=== PATIENT | female | born 1945 | race Caucasian/White ===

== ENCOUNTER 2019-11-19 23:10 | Inpatient (IN) | payer MEDICARE, BC ==
[~2019-11-19 23:10] MED LIST: Iopamidol 370 76% 100 ML VIAL ONE
--- NOTE | 2019-11-19 23:22 | CT ---
CT BRAIN WITHOUT CONTRAST: HISTORY: Level 1 stroke. Left-sided facial droop, slurred speech, left upper and lower extremity weak ness FINDINGS: A dense right MCA sign is seen suspicious for an acute infarct. No evidence of acute hemorrhage, midl ine shift or abnormal extra-axial fluid collections is seen. The ventricular size is appropriate and the basilar cisterns are patent. The bony calvarium is intact. The visualized paranasal sinuses a nd mastoid air cells are well aerated. IMPRESSION: Findings are highly suspicious for an acute right MCA infarction. Discussed over the telephone with ER physician Dr. Cuate Vital at 11:18 PM
[2019-11-19 23:41] LABS: #Eosinphils 0.1 thou/uL (0.0-0.7); #Lymphocytes 2.3 thou/uL (1.20-3.40); #Monocytes 0.6 thou/uL (0.11-0.59); #Neutrophils 4.4 thou/uL (1.40-6.50); %Basophils 0.2 % (0.0-1.0); %Eosinophils 1.4 % (0.0-10.0); %Lymphocytes 31.4 % (21.0-51.0); %Monocytes 7.5 % (0.0-10.0); %Neutrophils 59.5 % (42.0-75.0); Hemoglobin 11.9 g/dL (12.0-16.0); Mean Corpuscular HGB CONC 33.6 g/dL (32.0-36.0); Mean Corpuscular Hemoglobin 32.3 pg (27.0-31.0); Mean Corpuscular Volume 96.3 fL (78.0-98.0); Mean Platelet Volume 8.8 fL (7.4-10.4); Platelet Count 160 thou/uL (130-400); RBC Distribution Width 11.7 % (11.5-14.5); Red Blood Cell (RBC) Count 3.67 mill/uL (4.20-5.40); White Blood Cell (WBC) Count 7.4 thou/uL (4.8-10.8)
[2019-11-19 23:47] LABS: PTT 24.9 SEC (22.9-36.1); Prothrombin Time 12.8 SEC (12.0-14.7)
--- NOTE | 2019-11-19 23:53 | RAD ---
XR Chest 1 View Portable HISTORY: Altered mental status, level 1 stroke COMPARISON: None FINDINGS: The heart size is enlarged. The aorta is tortuous. There is pulmonary vascular congestion. No pneumothoraces or large effusions are identified.
[2019-11-20 00:03] LABS: ALT (SGPT) 18 U/L (8-55); AST (SGOT) 17 U/L (5-34); Albumin 3.9 g/dL (3.4-4.8); Alkaline Phosphatase 105 U/L (40-110); Anion Gap 15 mmol/L (10-20); BUN (Urea Nitrogen) 22 mg/dL (9.8-20.1); Bilirubin, Total 0.5 mg/dL (0.2-1.2); CK (CPK) 42 U/L (29-168); Calc. Creatinine Clearance 0 mL/min (70-130); Calcium 9.3 mg/dL (7.8-10.44); Carbon Dioxide 23 mmol/L (23-31); Chloride 104 mmol/L (98-107); Estimated GFR-MDRD 63; Globulin 2.6 g/dL (2.4-3.5); Glucose 109 mg/dL (83-110); Lipase 13 U/L (8-78); Potassium 3.7 mmol/L (3.5-5.1); Protein, Total 6.5 g/dL (6.0-8.3); Sodium 138 mmol/L (136-145)
[2019-11-20] MEDS ORDERED: Sodium Chloride 0.9% 1,000 ML IV SCH (02:18)
[2019-11-20] MEDS ORDERED: Ondansetron ODT 4 MG TAB SL PRN (02:18)
[2019-11-20] MEDS ORDERED: Ondansetron PF 4 MG/2 ML Vial IVP PRN (02:18)
[2019-11-20] MEDS ORDERED: niCARdipine 25 MG in Sodium Chloride 0.9% 250 ML 240 ML IVPB PRN (02:27)
[2019-11-20] MEDS ORDERED: Docusate 100 MG CAP PO PRN (02:27)
[2019-11-20] MEDS ORDERED: Acetaminophen 650 MG Suppository PR PRN (02:27)
--- NOTE | 2019-11-20 02:45 | PDOC.HHP ---
Hospitalist HPI - History of Present Illness Unilateral weakness History of Present Illness: Patient is a 74 year old female with PMH HTN, hypothyroidism brought to ED by helocopter with after acute onset L sidede weakness and R sided facial droop as well as altered mental status, patient symptoms developed around 10pm over short period observed by . In ED, CT and CTA of head and neck performed, revealing extensive clot R dital carotid to R MCA, blood glucose 106 , INR 1, NIHSS 23, patient given tPA protocol with minimal improvement of symptoms and admitted to CCU for further monitoring and care. Time of onset to tpa less than 3 hours, no history of bleeding or IC hemorrhage, no recent surgery, not on ASA or blood thinner. No known history of Afib or heart disease Hospitalist ROS - Review of Systems ROS unobtainable: due to mental status Hospitalist History - Past Medical History Other Medical History: hypothyroidism htn - Past Surgical History Other Surgical History: denies per - Family History Other Family History: denies per - Social History Smoking Status: Never smoker Alcohol: reports: Rare (1-2 glasses wine a day) Drugs: reports: none - Exam General Appearance: ill appearing Eye - other findings: L sided gaze palsy, abnormal pupilarry response R ENT: normocephalic atraumatic, moist mucosa Neck: supple, no JVD Heart: RRR, no murmur, no gallops, no rubs Respiratory: CTAB, no wheezes, no rales, no ronchi Gastrointestinal: soft, non-tender, non-distended, normal bowel sounds Extremities: no cyanosis, no clubbing, no edema Skin: no lesions, no rashes Neurological: facial droop (R), hemiplegia (L sided body, R sided face hemiplegia, reduced or absent sensation L body R face, R body and left face normal, global altered mental status), speech deficit, vision deficit Neurological - other findings: L sided muscle strength 1+ in all arm and leg muscle groups, R facial droop Musculoskeletal: normal tone, no muscle wasting Psychiatric: not oriented Hospitalist Results - Labs Result Diagrams: 11/19/19 23:23 11/19/19 23:23 Lab results: WBC 7.4 thou/uL (4.8-10.8) 11/19/19 23:23 Hgb 11.9 g/dL (12.0-16.0) L 05/01/20 23:23 Hct 35.3 % (36.0-47.0) L 11/19/19 23:23 MCV 96.3 fL (78.0-98.0) 11/19/19 23:23 Plt Count 160 thou/uL (130-400) 11/19/19 23:23 Neutrophils % 59.5 % (42.0-75.0) 11/19/19 23:23 Sodium 138 mmol/L (136-145) 11/19/19 23:23 Potassium 3.7 mmol/L (3.5-5.1) 11/19/19 23:23 Chloride 104 mmol/L (98-107) 11/19/19 23:23 Carbon Dioxide 23 mmol/L (23-31) 11/19/19 23:23 BUN 22 mg/dL (9.8-20.1) H 11/19/19 23:23 Creatinine 0.88 mg/dL (0.6-1.1) 11/19/19 23:23 Glucose 109 mg/dL (83-110) 11/19/19 23:23 Calcium 9.3 mg/dL (7.8-10.44) 11/19/19 23:23 Total Bilirubin 0.5 mg/dL (0.2-1.2) 11/19/19 23:23 AST 17 U/L (5-34) 11/19/19 23:23 ALT 18 U/L (8-55) 11/19/19 23:23 Alkaline Phosphatase 105 U/L (40-110) 11/19/19 23:23 Creatine Kinase 42 U/L (29-168) 11/19/19 23:23 Troponin I 0.010 ng/mL (< 0.028) 11/19/19 23:23 B-Natriuretic Peptide 263.4 pg/mL (0-100) H 11/19/19 23:23 Serum Total Protein 6.5 g/dL (6.0-8.3) 11/19/19 23:23 Albumin 3.9 g/dL (3.4-4.8) 11/19/19 23:23 Lipase 13 U/L (8-78) 11/19/19 23:23 Additional comment: VITAL SIGNS Sat November 20, 2019 01:17 Authement, RN, Narayan BP: 188/89 Pulse: 65 Resp: 16 Temp: 98.2 (Oral) Pain: 0 O2 sat: 99 on (Room Air) Time: 11/20/2019 01:17. Hospitalist H&P A/P - Plan Plan: Patient is a 74 year old female with PMH HTN, hypothyroidism brought to ED by helocopter with after acute onset L sidede weakness and R sided facial droop as well as altered mental status. # acute ischemic stroke - CT head and CTA concerning for extensive clot of distal R carotid extending to R MCA causing acute stroke with L sided hemiplegia and R facial droop, patient given tPA within 3 hours of onset of symptoms for NIHSS 23 and no change in symptoms after infusion, admitted to CCU for further monitoring and care. 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
[2019-11-20 03:04] VITALS: BMI 34.9
[2019-11-20] MEDS: Sodium Chloride 0.9% 1,000 ML IV SCH ×2 (03:40→16:29)
[2019-11-20] MEDS: Communication Order-Pharmacy FS SCH ×2 (03:41→23:44)
[2019-11-20 04:40] LABS: PTT 29.9 SEC (22.9-36.1)
[2019-11-20 04:41] LABS: Prothrombin Time 13.5 SEC (12.0-14.7)
[2019-11-20 04:53] LABS: ALT (SGPT) 18 U/L (8-55); AST (SGOT) 17 U/L (5-34); Albumin 4.1 g/dL (3.4-4.8); Alkaline Phosphatase 123 U/L (40-110); Anion Gap 16 mmol/L (10-20); BUN (Urea Nitrogen) 22 mg/dL (9.8-20.1); Bilirubin, Total 0.6 mg/dL (0.2-1.2); Calc. Creatinine Clearance 80 mL/min (70-130); Calcium 9.3 mg/dL (7.8-10.44); Carbon Dioxide 23 mmol/L (23-31); Cardiac Risk 2.6 (Less than 4.5); Chloride 102 mmol/L (98-107); Cholesterol 135 mg/dl (< 200 Desired); Estimated GFR-MDRD 64; Globulin 2.9 g/dL (2.4-3.5); Glucose 164 mg/dL (83-110); HDL Cholesterol 52 mg/dL (>60 Neg Risk); LDL Cholesterol, Calculated 68 mg/dL; Potassium 4.2 mmol/L (3.5-5.1); Sodium 137 mmol/L (136-145); Triglycerides 74 mg/dL (Less than 150)
[2019-11-20] MEDS: Piperacillin/Tazobactam 3.375 GM in Sodium Chloride 0.9% 100 ML IVPB SCH ×4 (05:57→23:34)
--- NOTE | 2019-11-20 06:46 | CT ---
CTA HEAD AND NECK WITH IV CONTRAST AND 3D POST PROCESSING: HISTORY: Left facial droop. Slurred speech. Left upper and lower extremity weakness. Level I stroke. CORRELATION: CT brain from the same day. FINDINGS: There is occlusion of the distal cervical right ICA, extending intracranially and involving the carot id canal and cavernous portions and the supraclinoid portions, into a 1 cm M1 segment of the right MC A. There is decreased flow to the brain tissue in the right MCA territory. There is normal flow in the left carotid artery system and in the entire vertebrobasilar system. Ther e is calcified plaque in the carotid bulbs without significant stenosis. Discussed over the telephone with ER physician Dr. Cuate Vital at 11:50 p.m. CODE CR POS: ABIGAIL
--- NOTE | 2019-11-20 07:42 | RAD ---
RADIOGRAPH CHEST 1 VIEW: DATE: 11/20/2019 TIME: 5:47 AM HISTORY: 74-year-old female with hypoxia and aspiration. COMPARISON: 11/19/2019 FINDINGS: Interval development of diffuse mixed interstitial and alveolar infiltrates throughout the right lung . Interval development of diffuse interstitial infiltrates throughout the left mid and lower lung zones. Cardiac size at upper limits of normal. No pneumothorax. IMPRESSION: Interval development of diffuse bilateral pulmonary densities, right worse than left. Differential di agnosis includes pulmonary edema versus pneumonia.
--- NOTE | 2019-11-20 08:08 | CT ---
PRELIMINARY REPORT/[facility]/AFTER HOURS PROCEDURE CT HEAD WITHOUT INTRAVENOUS CONTRAST: CLINICAL HISTORY: F/u CVA; s/p t-PA. TECHNIQUE: Axial computed tomography images of the head/brain without intravenous contrast. COMPARISON: 11/19/19 FINDINGS: Interim evolution of right MCA territory infarct with loss of mitchell white differentiation. No acute intraparenchymal hemorrhage. No mass lesion. No midline shift or extra-axial collection. No hydrocephalus. The orbits are unremarkable. The paranasal sinuses and mastoid air cells are clear. No significant facial or scalp soft tissue swelling evident. No radiopaque foreign body is seen. No acute skull fracture. IMPRESSION: Interim evolution of right MCA territory infarct with loss of mitchell white differentiation. No acute in traparenchymal hemorrhage. ELECTRONICALLY SIGNED BY: Vamsi Edwards MD November 20, 2019 4:09:59 AM CDT This report is intended for review by the ordering physician only, in accordance of law. If you recei ve this report in error, please call [facility] at [phone]. FINAL REPORT CT BRAIN NONCONTRAST: 11/20/2019 4:00 a.m. HISTORY: A 74-year-old female with acute stroke. COMPARISON: 11/19/2019 FINDINGS: There is a new finding of cytotoxic edema with loss of hernandez-white junction involving the entire right frontal lobe, almost the entire right temporal lobe, entire right lentiform nucleus-basal ganglia and caudate, and most of the right parietal lobe. There is no acute intra-axial or extra-axial hemorr juan. Ventricles are normal in size and configuration. No mass effect, midline shift or extra-axial fluid collection. Agree with preliminary report by [facility]. IMPRESSION: Evolution of a very large acute infarction in the right middle cerebral artery territory, involving m ost of the right cerebral hemisphere and entire right corpus striatum. CODE QA Transcribed Date/Time: 11/20/2019 8:57 AM
[2019-11-20] MEDS: hydrALAZINE 20 MG/ML VIAL SLOW IVP PRN (08:51)
[2019-11-20] MEDS: methylPREDNISolone Sod Succ 40 MG VIAL IVP SCH ×3 (10:28→23:34)
[2019-11-20] MEDS: Insulin Regular 300 UNITS/3 ML VIAL SC PRN ×3 (10:29→20:12)
--- NOTE | 2019-11-20 12:47 | CON ---
DATE OF CONSULTATION: 11/28/2019 HISTORY OF PRESENT ILLNESS: Ms. White is a 74-year-old female, who apparently developed left-sided weakness and facial droop. She was given tPA. She had some nausea and vomiting apparently sometime along the way and is in the critical care unit after tPA with reported possible aspiration. She has no complaints at this time. She has a very weak voice. If she is not talking, she is not tachypneic. PAST MEDICAL HISTORY: Remarkable for: 1. Hypertension. 2. History of hypothyroidism. SOCIAL HISTORY: Nonsmoker. Occasional drinker. FAMILY HISTORY: Negative for lung disease in early age. REVIEW OF SYSTEMS: Otherwise, negative. PHYSICAL EXAMINATION: GENERAL: She is in no distress. VITAL SIGNS: Blood pressure 153/75, heart rate is 80, respiratory rates in the 20s, oximetry is 92% to 93%. HEAD AND NECK: Unremarkable. LUNGS: Clear. HEART: Regular rhythm. S1 and S2 are normal. ABDOMEN: Soft and nontender. EXTREMITIES: Without edema. LABORATORY DATA: White count 7.4, hemoglobin 11.9, platelets 160. Electrolytes are normal. Creatinine is 0.8. Coags are normal. Head CT done this morning shows right middle cerebral infarct. Chest x-ray shows an alveolar infiltrate involving almost the entire right lung. IMPRESSION AND PLAN: Aspiration with probable chemical pneumonitis. She will receive nebulized treatments, steroids, and antimicrobial therapy. Overall, she is stable from a respiratory standpoint after cerebrovascular accident. This is a 70 min consult with greater than 50% of the time spent on the unit with coordination of care. Job ID: [id number] MTDD
--- NOTE | 2019-11-20 16:14 | CON ---
DATE OF CONSULTATION: 11/20/2019 CONSULTING PHYSICIAN: Hospitalist Service. IMPRESSION: 1. 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 2. Aspirin failure. PLAN: 1. Start Plavix 75 mg per day after the 24-hour window is . 2. Probable need for transfer to rehab. HISTORY OF PRESENT ILLNESS: Ms. White is a 74-year-old woman with past history of hypertension. She reports that she developed left-sided weakness and numbness. She came in to the emergency room last night. CT angiogram showed a distal right ICA occlusion, which extended up into the cavernous portion. Initial CT did not show any evidence of a bleed. She was given tPA. She had a followup CT scan of the brain done this morning, which showed an evolving right MCA stroke. She denies a history of TIA. She was on aspirin prior to admission. She denies being on a statin. There is no history of tobacco use. PAST MEDICAL HISTORY: Hypertension. ALLERGIES: PER CHART. SOCIAL HISTORY: No tobacco or alcohol use. FAMILY HISTORY: Noncontributory. REVIEW OF SYSTEMS: Ten-system review of systems is otherwise negative. PHYSICAL EXAMINATION: VITAL SIGNS: Blood pressure 150/77, pulse 86 and a sinus rhythm, and respirations 20. She is afebrile. HEENT: Pupils are equal. Conjunctivae are clear. Oropharynx clear. Cranium, normocephalic and atraumatic. NECK: Supple. EXTREMITIES: No cyanosis, clubbing or edema. NEUROLOGIC: She was alert and cooperative. Her speech was fluent and clear. She had a subtle left facial droop. There was a dense paralysis of the left side. She had sensory neglect of the left side. Plantar response was upgoing on the left and downgoing on the right. Gait was not testable. LABORATORY STUDIES: Unremarkable. IMAGING STUDIES: Reviewed. SUMMARY: This is an unfortunate woman, who had a thrombosis of her internal carotid artery, reportedly preliminarily her echocardiogram does not show a cardiac source. She has fairly dense deficits at this point. I agree with current management. I would add Plavix following the 24-hour window. Job ID: [id number]
[2019-11-20] MEDS: Ondansetron PF 4 MG/2 ML Vial IVP PRN ×2 (16:26→22:02)
[2019-11-20] MEDS: Atorvastatin Calcium 40 MG TAB PO SCH (20:05)
[2019-11-21] MEDS: Piperacillin/Tazobactam 3.375 GM in Sodium Chloride 0.9% 100 ML IVPB SCH ×4 (05:12→23:38)
[2019-11-21] MEDS: Sodium Chloride 0.9% 1,000 ML IV SCH ×2 (05:12→20:36)
[2019-11-21] MEDS: methylPREDNISolone Sod Succ 40 MG VIAL IVP SCH ×4 (05:14→23:39)
[2019-11-21] MEDS: Insulin Regular 300 UNITS/3 ML VIAL SC PRN ×4 (05:15→21:27)
[2019-11-21] MEDS: Ondansetron PF 4 MG/2 ML Vial IVP PRN (06:27)
[2019-11-21] MEDS ORDERED: manNITOL 20% 0 ML ONE (08:41)
--- NOTE | 2019-11-21 08:44 | CT ---
CT BRAIN NONCONTRAST: DATE: 11/21/2019 8:30 AM HISTORY: 74-year-old female with altered mental status: new unresponsiveness. Dr. Mcdonnell notified CCU nurse Baylee Hutson RN at 8:37 AM 11/21/2019. She stated that she will immediately alert the staff. COMPARISON: 11/20/2019 FINDINGS: The large region of cytotoxic edema involving the entire right MCA and MIRNA territory, has resulted in expansion of the right cerebral hemisphere, such that there is a new finding of 20 mm of right to left midline shift of the septum pellucidum, almost completely effacing the right lateral ventricle, severely narrowing the third ventricle, and distorting the left lateral ventricle, where there is new dilation of the left temporal horn. Fourth ventricle remains normal. The midbrain is distorted, w ith effacement of the ambient cistern. No cerebellar tonsillar herniation. No acute hemorrhage. IMPRESSION: Interval severe worsening of the cytotoxic edema of the very large acute infarctions of the entire ri ght middle cerebral artery territory and entire right anterior cerebral artery territory,. With interval development of severe mass effect, causing severe subfalcine herniation and uncal herniation
[2019-11-21] MEDS ORDERED: MANNITOL 20% IVPB SCH ×2 (09:00)
[2019-11-21] MEDS ORDERED: ADMIXTURE FEE CHEMO IVPB SCH (09:00)
--- NOTE | 2019-11-21 10:21 | CON ---
DATE OF CONSULTATION: 11/21/2019 CONSULTING PHYSICIAN: Hospitalist Service. HISTORY OF PRESENT ILLNESS: Ms. White has become less verbally responsive overnight. She was taking on the CT scan and repeat imaging showed fairly massive area of ischemic injury involving the right middle and anterior cerebral artery territory. There is midline shift. There remained some room around the brain stem. There is no secondary hemorrhage. Neurosurgery was consulted and the situation was discussed with her . I have elected to only treat her medically rather than any surgical intervention. She has been started on mannitol. She is currently on steroids. Her head of bed is elevated at 30 degrees. Her fluid is restricted 75 mL an hour. We will follow her course, it seems to be little else we can do at this point. Job ID: [id number]
[2019-11-21 10:27] LABS: Sodium 137 mmol/L (136-145)
[2019-11-21 10:33] LABS: Hemoglobin 12.9 g/dL (12.0-16.0); Mean Corpuscular HGB CONC 33.7 g/dL (32.0-36.0); Mean Corpuscular Hemoglobin 31.9 pg (27.0-31.0); Mean Corpuscular Volume 94.6 fL (78.0-98.0); Mean Platelet Volume 8.3 fL (7.4-10.4); Platelet Count 220 thou/uL (130-400); RBC Distribution Width 11.8 % (11.5-14.5); Red Blood Cell (RBC) Count 4.06 mill/uL (4.20-5.40)
[2019-11-21 10:43] LABS: ALT (SGPT) 17 U/L (8-55); AST (SGOT) 19 U/L (5-34); Albumin 3.9 g/dL (3.4-4.8); Alkaline Phosphatase 101 U/L (40-110); Anion Gap 15 mmol/L (10-20); BUN (Urea Nitrogen) 15 mg/dL (9.8-20.1); Bilirubin, Total 0.7 mg/dL (0.2-1.2); Calc. Creatinine Clearance 90 mL/min (70-130); Calcium 8.2 mg/dL (7.8-10.44); Carbon Dioxide 20 mmol/L (23-31); Chloride 104 mmol/L (98-107); Estimated GFR-MDRD 75; Globulin 2.7 g/dL (2.4-3.5); Glucose 215 mg/dL (83-110); Protein, Total 6.6 g/dL (6.0-8.3)
[2019-11-21 10:47] LABS: Potassium 2.7 mmol/L (3.5-5.1)
--- NOTE | 2019-11-21 10:57 | CON ---
DATE OF CONSULTATION: 11/21/2019 TIME SEEN: 0845 hours. SUBJECTIVE: Ms. White is a 74-year-old woman, who was admitted yesterday early for stroke-like symptoms. She was found to have a large right internal carotid total occlusion and tPA was administered in the emergency department. It was already early evidence on CT scan of infarction throughout the majority of the right hemisphere. Neurosurgery is consulted this morning for further decline in her neurologic status with the repeat CT performed this morning showing vast evolution of cytotoxic edema and new presence of severe midline shift right to left measuring roughly 20 mm. There is full effacement in the right lateral ventricle and subfalcine herniation is most certainly present. Neurology and Dr. Barrow has already been on this patient's case and ordered mannitol to start, which is at 60 gram dose initially and then 60 gram every 8 hours from there. At bedside, the patient has eyes closed and does not open them for us even when requested to do so. She does rapidly follow commands in the right upper extremity and right lower extremity. She squeezes the hand, holds up 2 fingers, holds up 4 fingers and wiggles her toes. At this time, she is nonverbal. She has dense hemiparesis at the left upper and left lower extremity. Pupils, right is roughly 3 to 4 mm in size, left is 2 mm in size, both are sluggishly reactive to light. As we are examining her, she has 1 episode of emesis and bed is shifted from around 30 degrees closer to 80 degrees in the upright position. The patient does not have any declaration of a DNR nor DNI status and this has been a rapidly evolving situation. I do not feel that surgical intervention will likely change her prognosis in this setting unfortunately, given the grave prognosis of her large hemispheric stroke as well as her advanced age of 74. I discussed case with Dr. Sarkar, Dr. Barrow, Dr. Tristan, as well as Dr. Centeno. Our intervention at this time will be medical only, pending further discussion with family. We will switch her initial dose to 90 grams of mannitol and then continue from there at 60 grams every 8 hours with serum osmolality and serum sodium checks 1 hour prior to ensure that it is safe to give the next dose. Serum chemistry, upper limits will be set at sodium of 150 and serum osmolality of 320, will need to be called and updated if we have lab values over those for direction on the next dose. Dr. Sarkar also did reach out to as were reviewing the patient's case this morning, who states the patient does not wish to be on mechanical ventilation and does not want the patient intubated, so at this time, we will proceed with [facility]. Family to come and see the patient at bedside sometime later this morning. Again, discussion with Dr. Centeno is nonsurgical management. No additional intervention at this time. Job ID: [id number]
[2019-11-21 10:58] LABS: Lymphocytes 5 % (21-51); MDiff Complete? YES; Monocytes 4 % (0-10); Neutrophil 91 % (42-75); Platelet Morphology Comment Appears Adequate
[2019-11-21] MEDS ORDERED: CCU Electrolyte Replacement 1 EACH FS ONE (10:59)
[2019-11-21] MEDS ORDERED: Potassium Chloride 40 MEQ in Premix Bag 1 BAG IVPB PRN (11:01)
[2019-11-21] MEDS ORDERED: Potassium Chloride 20 MEQ TAB PO PRN (11:01)
[2019-11-21] MEDS ORDERED: PHOS-NAK 1 PKT PACK PO PRN ×2 (11:01)
[2019-11-21] MEDS ORDERED: Potassium Phosphate 12 MMOL in Sodium Chloride 0.9% 250 ML 250 ML IV PRN (11:01)
[2019-11-21] MEDS ORDERED: Magnesium Oxide 400 MG TAB PO PRN ×2 (11:01)
[2019-11-21] MEDS ORDERED: Potassium Phosphate 15 MMOL in Sodium Chloride 0.9% 250 ML 250 ML IV PRN (11:01)
[2019-11-21] MEDS ORDERED: Magnesium 2 GM/50 ML 2 GM in Premix Bag 1 BAG IVPB PRN (11:01)
[2019-11-21] MEDS ORDERED: Potassium Phosphate 9 MMOL in Sodium Chloride 0.9% 100 ML IVPB PRN (11:01)
--- NOTE | 2019-11-21 11:17 | PRG ---
DATE OF SERVICE: 11/21/2019 Ms. White is a 74-year-old female, who presented with right-sided CVA. Her right internal carotid artery was occluded, which prevented meaningful treatment by endovascular means. She has since developed as anticipated a large ischemic infarct involving much of the right hemisphere. She has been seen by our service as well as Pulmonary/Critical Care and Neurology. I do not believe any surgical intervention at this point in time would prove fruitful. A hemicraniectomy in someone in her age group and current functional status would be very difficult to recover from with unlikely improvement overall in functional outcome. Maximal medical management is the appropriate steps moving forward. I reviewed the note and agree with the assessment as dictated by Manish Edmonds PA-C. Job ID: [id number]
[2019-11-21] MEDS: Enoxaparin Sodium 40 MG/0.4 ML SYRINGE SC SCH (11:28)
[2019-11-21] MEDS: Aspirin 300 MG Suppository PR SCH (11:28)
[2019-11-21] MEDS: Potassium Chloride 40 MEQ in Sodium Chloride 0.9% 250 ML 250 ML IVPB PRN ×3 (11:43→23:30)
[2019-11-21] MEDS: hydrALAZINE 20 MG/ML VIAL SLOW IVP PRN ×2 (15:59→23:47)
[2019-11-21 17:04] LABS: Sodium 141 mmol/L (136-145)
[2019-11-21 17:06] LABS: Potassium 2.7 mmol/L (3.5-5.1)
[2019-11-21] MEDS: ADMIXTURE FEE IVPB SCH (17:43)
[2019-11-21] MEDS: IN MANNITOL IVPB SCH (17:43)
--- NOTE | 2019-11-21 20:31 | PRG ---
DATE OF SERVICE: 11/21/2019 SUBJECTIVE: Kenna White is clinically declined throughout the day. She has been evaluated multiple times. Hospitalist contacted her , who did not want her mechanically ventilated, did not want her to be evaluated for neurosurgical procedure such as a craniectomy. She has asymmetric pupils this afternoon. Hemodynamics have remained stable, but she is starting to have difficulty protecting her airway. When I evaluated her late this afternoon, it is clear that she would need airway protection if she were to survive any length of time. OBJECTIVE: LUNGS: Otherwise unchanged. HEART: Otherwise unchanged. ABDOMEN: Otherwise unchanged. LABORATORY DATA: White count is 19, hemoglobin 12.9, platelets 220,000. Sodium 137, potassium 2.7, chloride 104, bicarb 20, BUN 15, and creatinine 0.75. DIAGNOSTIC DATA: Head CT showed a dramatic midline shift and impending herniation. IMPRESSION: Massive thrombotic hemispheric cerebrovascular accident with impending herniation. It is unlikely that she will survive 24 hours. She has been made a [id number] patient. Critical care time 30 min Job ID: [id number] MTDD
[2019-11-21] MEDS: Atorvastatin Calcium 40 MG TAB PO SCH (20:37)
[2019-11-21 22:42] LABS: Potassium 3.2 mmol/L (3.5-5.1)
[2019-11-22 00:26] LABS: Sodium 148 mmol/L (136-145)
[2019-11-22] MEDS: Labetalol HCl 100 MG/20 ML VIAL SLOW IVP PRN ×2 (01:21→06:17)
[2019-11-22 01:29] LABS: Sodium 149 mmol/L (136-145)
[2019-11-22] MEDS: IN MANNITOL IVPB SCH (01:33)
[2019-11-22] MEDS: ADMIXTURE FEE IVPB SCH (01:33)
[2019-11-22] MEDS: hydrALAZINE 20 MG/ML VIAL SLOW IVP PRN ×2 (03:36→07:06)
[2019-11-22] MEDS: Insulin Regular 300 UNITS/3 ML VIAL SC PRN ×2 (03:50→08:59)
[2019-11-22 04:41] LABS: Potassium 4.1 mmol/L (3.5-5.1)
[2019-11-22] MEDS: Sodium Chloride 0.9% 1,000 ML IV SCH ×2 (05:02→08:58)
[2019-11-22] MEDS: methylPREDNISolone Sod Succ 40 MG VIAL IVP SCH (05:02)
[2019-11-22] MEDS: Piperacillin/Tazobactam 3.375 GM in Sodium Chloride 0.9% 100 ML IVPB SCH (05:02)
--- NOTE | 2019-11-22 06:58 | PDOC.HOSPP ---
- Subjective Encounter Date: 11/21/19 Encounter Time: 09:00 Subjective: pt had change of mental status per nursing and tachypnea. - Objective Vital Signs & Weight: Vital Signs (12 hours) Temp Pulse Resp BP Pulse Ox 11/22/19 06:17 67 198/115 H 11/22/19 04:00 97.6 F 11/22/19 03:36 69 197/92 H 11/22/19 02:49 67 18 98 11/22/19 01:21 68 192/92 H 11/21/19 23:47 67 182/96 H 11/21/19 23:00 97.6 F 11/21/19 22:35 67 23 H 96 11/21/19 20:00 97.9 F 94 L Weight Weight 193 lb 12.581 oz Most Recent Monitor Data Heart Rate from ECG 73 NIBP 198/115 NIBP BP-Mean 142 Respiration from ECG 20 SpO2 97 I&O: 11/20/19 11/21/19 11/22/19 06:59 06:59 06:59 Intake Total 248 1609 3569 Output Total 650 1430 5135 Balance -402 179 -1566 Result Diagrams: 11/21/19 09:16 11/22/19 03:58 Additional Labs: Accuchecks 11/22/19 11/21/19 11/21/19 03:52 21:29 17:00 POC Glucose 218 H 192 H 224 H 11/21/19 10:22 POC Glucose 224 H Hospitalist ROS - Review of Systems Other: unable to obtain - Medication Medications: Active Medications Generic Name Dose Route Start Last Admin Trade Name Freq PRN Reason Stop Dose Admin Acetaminophen 650 mg 11/20/19 02:27 11/20/19 22:09 Tylenol AL 650 mg Q6H PRN Administration Headache/Fever/Mild Pain (1-3) Albuterol/Ipratropium 3 ml 11/20/19 10:30 11/22/19 02:49 Duoneb NEB 3 ml [id number] NIRAJ Administration Aspirin 300 mg 11/21/19 09:00 11/21/19 11:28 Aspirin AL 300 mg DAILY NIRAJ Administration Atorvastatin Calcium 40 mg 11/20/19 21:00 11/21/19 20:37 Lipitor PO 40 mg HS NIRAJ Administration Enoxaparin Sodium 40 mg 11/21/19 09:00 11/21/19 11:28 Lovenox SC 40 mg 0900 NIRAJ Administration Hydralazine HCl 10 mg 11/20/19 02:27 11/22/19 03:36 Apresoline SLOW IVP 10 mg Q4H PRN Administration SBP > 180 or DBP > 105 Piperacillin Sod/Tazobactam 100 mls @ 200 mls/hr 11/20/19 06:00 11/22/19 05: 02 Sod 3.375 gm/ Sodium Chloride IVPB 100 mls Q6HR NIRAJ Administration Miscellaneous Medication 1 300 mls @ 0 mls/hr 11/21/19 17:00 11/22/19 01:33 each/ Mannitol IVPB Not Given 0100,0900,1700 [facility] As Directed Potassium Chloride 40 meq/ 270 mls @ 135 mls/hr 11/21/19 11:01 11/21/19 23:30 Sodium Chloride IVPB 270 mls ASDIR PRN Administration FOR SERUM K+ 2.5 - 3.5 Sodium Chloride 1,000 mls @ 100 mls/hr 11/21/19 18:30 11/22/19 05:02 Normal Saline 0.9% IV Not Given .Q10H [facility] Insulin Human Regular 0 units 11/20/19 02:27 11/22/19 03:50 Humulin R SC 4 unit .MODERATE SLIDING SC PRN Administration Moderate Correctional Scale Labetalol HCl 10 mg 11/20/19 02:27 11/22/19 06:17 Normodyne SLOW IVP 10 mg Q10MIN PRN Administration SBP > 180 or DBP > 105 Methylprednisolone Sodium Succinate 40 mg 11/20/19 12:00 11/22/19 05:02 Solu-Medrol IVP 40 mg Q6HR NIRAJ Administration Ondansetron HCl 4 mg 11/20/19 15:59 11/21/19 06:27 Zofran IVP 4 mg Q6H PRN Administration Nausea/Vomiting Sodium Chloride 10 ml 11/20/19 09:00 11/21/19 20:46 Flush - Normal Saline IVF 10 ml Q12HR NIRAJ Administration - Exam Heart: negative: RRR, no murmur, no gallops, no rubs, normal peripheral pulses, irregular, diminshed peripheral pulses, murmur present, II/IV, III/IV Respiratory: rhonchi Gastrointestinal: negative: soft, non-tender, non-distended, normal bowel sounds , no palpable masses, no hepatomegaly, no splenomegaly, no bruit, no guarding, no rigidity, tender to palpation, distended, diminished bowl sounds, voluntary guarding Extremities: 1+ LE edema Neurological - other findings: not following commands Hosp A/P (1) Stroke Code(s): I63.9 - CEREBRAL INFARCTION, UNSPECIFIED Status: Acute (2) 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 Ct brain ordered. pt does have change in mental status from yesterday. ct brain indicates worsening swelling and herniation. Neurosurgery called to evaluate pt. Neurology called. pt started on mannitol. per NS no surgical intervention. spoke with Farhad White who states that he will come see his . spoke with pt's daughter Radha and updated her about pt's overall poor outcome. Spoke with pulmonary who stated that she may require intubation since she is unable to manage her secretions however recommended against it because of her worsening ct brain and overall poor outcome. This information was relayed to pt's and daughter.
--- NOTE | 2019-11-22 07:06 | PDOC.FMACP ---
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 The diagnosis, prognosis and goals of care were discussed. Appropriate forms and documentation to accomplish the goals of care were discussed. All questions were answered. The Palliative Care Team will be engaged to assist with completion of any outstanding forms that are needed. spoke in person and on the phone to pt's Farhad White about pt's overall poor outcome given her change in ct brain. Also showed him pt's ct brain. pt's states that she does not want to be on life support and wanted her to be a DNAR. He stated that he will update the family. I also spoke on the phone with Radha (daughter) about pt's overall prognosis. she will try to come see her mother today. She also stated that her mother would not want to be kept alive on machines. She agreed with her step father's decision. Time Spent (mins): 35
[2019-11-22 07:07] VITALS: BP 208/156
[2019-11-22 07:55] VITALS: TEMP 95.7
[2019-11-22 08:13] LABS: Sodium 159 mmol/L (136-145)
[2019-11-22] MEDS: Aspirin 300 MG Suppository PR SCH (08:29)
[2019-11-22] MEDS: Enoxaparin Sodium 40 MG/0.4 ML SYRINGE SC SCH (08:29)
[2019-11-22] MEDS ORDERED: Morphine 4 MG/ML VIAL ONE (09:14)
[2019-11-22] MEDS ORDERED: Morphine 4 MG/ML VIAL SLOW IVP PRN (09:35)
--- NOTE | 2019-11-22 11:14 | PRG ---
DATE OF SERVICE: 11/22/2019 SUBJECTIVE: Kenna White is having apneic spells mixed with an inability to protect her airway, but does temporary responds to suctioning. OBJECTIVE: VITAL SIGNS: She is afebrile. Heart rate is 106 and blood pressure 175/88. Intake and output are -1566. She had 4685 urine out. ASSESSMENT AND PLAN: Clinically, she clearly is not going to survive this. Multiple unnecessary medications, it can be discontinued and we should move forward focusing on comfort at this point unfortunately. Job ID: [id number]
--- NOTE | 2019-11-23 13:54 | DIS ---
DATE OF ADMISSION: 11/20/2019 DATE OF DISCHARGE: 11/22/2019 DISCHARGE DIAGNOSES: 1. Stroke, status post tPA. 2. Acute respiratory distress. 3. Aspiration pneumonia. HOSPITAL COURSE: The patient is a 74-year-old female who initially presented to the hospital with change in mental status at this time and she was given tPA. Initially, she did well. However, over the weekend, she had change in mental status and had tachypnea. At this time, a repeat CT of the brain indicated worsening cytotoxic edema for a very large acute infarcts of the entire right middle cerebral artery territory and entire right anterior cerebral artery territory. At this time, there was a significant mass effect causing severe subfalcine herniation and uncal herniation. At this time, Neurosurgery was consulted. Recommendation was no surgical intervention. The patient was put on mannitol. Also, Neurology was consulted. I spoke with pulmonology who stated that her overall outcome would be poor if she got intubated given her grim prognosis. At this time, the patient's wanted to withdraw care and making her comfort. I also spoke with her daughter in extensive detail, and she has agreed with the plan. The patient on 11/21 at 10:14 a.m. The patient's family was notified, condolences to the family. Job ID: [id number]
--- NOTE | 2019-11-23 19:41 | PQF ---
RAHEL BOGGS IMER RUSH [id number] CLINICAL DOCUMENTATION IMPROVEMENT CLARIFICATION FORM: ICD-10 Updated PLEASE DO AN ADDENDUM TO THE PROGRESS NOTE WITH ANY DOCUMENTATION UPDATES OR ADDITIONS AND CARRY THROUGH TO DC SUMMARY. THANK YOU. DATE: 11/23/2019 ATTN: DR. Godwin RUSH Please exercise your independent, professional judgment in responding to the clarification form. Clinical indicators are provided on the bottom of this form for your review. Please check appropriate box(s): PLEASE SEE MY DC SUMMARY [ ] Acute Respiratory Failure: [ ] with Hypoxia[ ] with Hypercapnia [ ] Acute Respiratory Failure due to: (etiology) [ ] Hypoxia [ ] Other diagnosis [ ] Unable to determine In addition, please specify: Present on Admission (POA): [ ] Yes [ ] No [ ] Unable to determine For continuity of documentation, please document condition throughout progress notes and discharge summary. Thank You. CLINICAL INDICATORS - SIGNS / SYMPTOMS / LABS / RESULTS AND LOCATION IN MR 11/18 ED REPORT: PT 90%RA > 95-98% 2L/NC RESP 11/19 24 11/20 28 11/20 PN (LANA) IT IS CLEAR SHE WOULD NEED AIRWAY PROTECTION IF SHE WERE TO SURVIVE ANY LENGTH OF TIME 11/21 PN (LANA) IS HAVING APNEIC SPELLS MIXED WITH AN INABILITY TO PROTECT HER AIRWAY, BUT DOES RESPOND TO SUCTIONING. RISK: CVA, COMPRESSION OF THE BRAIN, ASPIRATION PNEUMONIA (YOSSI/VICTOR MANUEL) 11/20 TREATMENTS: PULMONOLOGY CONSULT (LANA/ 11/19) SUPPLEMENTAL OXYGEN (11/18 - EXPIRATION) Acute Respiratory Failure: ABG pH < 7.35 or > 7.45; Decreased oxygen saturation (<90% room air or < 95% on oxygen); PCO2 > 50 mm Hg; PO2 < 60 mm Hg; Labored or rapid respirations ARDS: Dx Criteria [Normal ARDS]: Respiratory symptoms within one week of a known clinical insult (e.g. shock, infection, surgery, trauma) Bilateral opacities in CXR/Chest CT not due to CHF or fluid THANK YOU! JAYLIN (This form is maintained as a part of the permanent medical record) 2014 [employer]. All Rights Reserved REID [email or web address]
--- NOTE | 2019-11-24 09:27 | EKG ---
Test Reason : Blood Pressure : / mmHG Vent. Rate : 061 BPM Atrial Rate : 061 BPM P-R Int : 170 ms QRS Dur : 134 ms QT Int : 494 ms P-R-T Axes : 051 026 032 degrees QTc Int : 497 ms Normal sinus rhythm Right bundle branch block Septal infarct , age undetermined Abnormal ECG No previous ECGs available Confirmed by DR. Godwin SIMON ([id number]) on 11/24/2019 9:26:56 AM Referred By: ABDIRASHID Confirmed By:DR. Godwin SIMON
--- NOTE | 2019-11-26 04:12 | PQF ---
RAHEL BOGGS KARISHMA [id number] CLINICAL DOCUMENTATION CLARIFICATION FORM: POST DISCHARGE Addendum to original discharge summary date: ____ Late entry note date: __ DATE: 11/26/2019 ATTN: IMER RUSH Please exercise your independent, professional judgment in responding to the clarification form. Clinical indicators are provided on the bottom of this form for your review Please check appropriate box(s): [ ] Encephalopathy: Type: [ x ] Acute [ ] Subacute [ ] Chronic Etiology: [ ] Hypertensive [ ] Metabolic [ ] Toxic [ ] Hepatic with Coma [ ] Hepatic w/o Coma [ ] Hypoxic [ ] Septic [ ] Drug induced: [ ] Unspecified [ ] in the setting of underlying dementia [x ] Other (please specify) STROKE [ ] Transient Alteration of Awareness [ ] Other diagnosis [ ] Unable to determine For continuity of documentation, please document condition throughout progress notes and discharge summary. Thank You. 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 All Rights Reserved [email or web address]
== END 2019-11-22 10:14 | disposition expired | DRG 61 ==
LOC: ERS 23:10 → CCU 11-20 00:46
PROVIDERS: ADMIT Internal Medicine; ATTEND Internal Medicine
DX: I63.9 Cerebral infarction, unspecified (principal); J69.0 Pneumonitis due to inhalation of food and vomit; G93.5 Compression of brain; G93.6 Cerebral edema; G81.94 Hemiplegia, unspecified affecting left nondominant side; G93.49 Other encephalopathy; R29.810 Facial weakness; Z66 Do not resuscitate; E03.9 Hypothyroidism, unspecified; I10 Essential (primary) hypertension; R29.723 NIHSS score 23; R06.03 Acute respiratory distress
CPT/HCPCS: 36415; 36416; 70450; 70496; 70498; 71045; 80053; 80061; 82550; 83690; 83880; 83930; 84132; 84295; 84439; 84443; 84484; 85025; 85610; 85730; 93005; 93010; 93306; 94640; 96361; 96365; 96376; 99292; J0360; J1650; J2270; J2405; J2543; J2920; J2997; J3480; J3490; J7050; J7620; J7799; Q9967